=== PATIENT | male | born 1980 | race Caucasian/White ===

== ENCOUNTER 2024-03-01 07:10 | Observation (INO) ==
[~2024-03-01 07:10] MED LIST: NS 0.45% 1000 ml BAG 1,000 ML IV SCH; Naloxone 0.4 mg VIAL 0.4 mg/ml 1 ml VIAL IV PRN; Ondansetron 4 mg VIAL 2 MG/ML 2 ml VIAL IV PRN; fentaNYL 100 mcg/2 ml 50 MCG/ML VIAL IV PRN
[2024-03-01] MEDS ORDERED: ceFAZolin 2 GM PREMIX 2 GM/50 ML BAG ONE (07:51)
[2024-03-01] MEDS ORDERED: Tranexamic Acid 1 GM/100ML BAG 2,000 MG/200 ML BAG IV ONE (07:51)
[2024-03-01] MEDS: Scopolamine 1 mg/72hr PATCH TRANSDERM ONE (08:13)
[2024-03-01] MEDS: Buffered Lidocaine 1% SYRIN 1 ml INTRADERM ONE (08:13)
[2024-03-01] MEDS: Lactated Ringers 1000 ml BAG 1,000 ML IV SCH ×2 (08:13→14:30)
[2024-03-01] MEDS ORDERED: Propofol 10 MG/ML 20 ML BTL ONE (08:14)
[2024-03-01] MEDS ORDERED: Lidocaine 2% PF 5 ML VIAL ONE (08:14)
[2024-03-01] MEDS ORDERED: Phenylephrine IV 10 MG/ML 1 ml VIAL ONE ×2 (08:16)
[2024-03-01] MEDS ORDERED: ROPIVACAINE 5 MG/ML 30 ML BTL (0.5%) ONE (08:21)
[2024-03-01] MEDS ORDERED: Midazolam 2 mg/2 ml VIAL 1 mg/ml 2 ml VIAL (2 mg) ONE (08:22)
[2024-03-01 08:42] LABS: Rapid COVID-19 Molecular Undetected (Undetected)
[2024-03-01] MEDS ORDERED: fentaNYL 100 mcg/2 ml 50 MCG/ML VIAL ONE (09:49)
[2024-03-01] MEDS ORDERED: Midazolam 5 mg/5 ml VIAL 1 mg/ml 5 ml VIAL (5 mg) ONE (09:49)
[2024-03-01] MEDS ORDERED: Ondansetron 4 mg VIAL 2 MG/ML 2 ml VIAL ONE (10:39)
[2024-03-01] MEDS ORDERED: Dexamethasone IV 4 MG/ML VIAL 1 ml VIAL ONE (10:39)
[2024-03-01] MEDS ORDERED: Ondansetron 4 mg VIAL 2 MG/ML 2 ml VIAL IV PRN (12:12)
[2024-03-01] MEDS ORDERED: Magnesium Hydroxide LIQ 30 ML UDC PO PRN (12:12)
[2024-03-01] MEDS ORDERED: Lactulose 30 ml UDC PO PRN (12:12)
[2024-03-01] MEDS ORDERED: Calcium Carb (TUMS) 500 mg CHEW TAB PO PRN (12:12)
[2024-03-01] MEDS ORDERED: Ondansetron ODT 4 mg TAB 4 MG TAB PO PRN (12:12)
[2024-03-01 15:57] LABS: ABS Basophils 0.1 10^3/uL (0.0-0.1); ABS Lymphocytes 0.7 10^3/uL (1.0-4.8); ABS Monocytes 0.4 10^3/uL (0.0-1.1); ABS Neutrophils 7.5 10^3/uL (1.5-7.6); ABS Nucleated RBC 0.01 10^3/ul; Eosinophil % 0.4 %; Hematocrit 36.5 % (38-53); Hemoglobin 12.4 g/dL (13.2-16.3); Lymphocyte % 8.5 %; Mean Corpuscular Hemoglobin 34.3 pg (27-33); Mean Corpuscular Volume 100.9 fL (80-97); Mean Platelet Volume 9.3 fL (7.5-11.2); Nucleated Red Blood Cells % 0.1 %/100WBC (0.0-0.8); Platelet Count 126 10^3/uL (150-450); Red Blood Count 3.62 10^6/uL (4.06-5.63); Red Cell Distribution Width 13.8 % (12-17); White Blood Count 8.8 10^3/uL (3.6-10.2)
[2024-03-01 16:05] LABS: INR 1.4 (0.85-1.14)
[2024-03-01 16:23] LABS: Albumin 2.5 g/dL (3.5-5.7); Albumin/Globulin Ratio 0.8 (1-3); Calcium 8.4 mg/dL (8.6-10.3); Creatinine, Serum 0.68 mg/dL (0.67-1.17); Potassium 3.8 mmol/L (3.5-5.0); Total Protein 5.5 g/dL (6.4-8.9); eGFR CKD-EPI 116.8 (>60)
[2024-03-01] MEDS: Morphine 2 MG/ML SYRINGE IV PRN (17:11)
[2024-03-01 17:48] LABS: Hepatitis C Antibody Negative (Negative)
[2024-03-01] MEDS ORDERED: Lidocaine 2% JELLY 10 ML JELLY ONE (17:50)
[2024-03-01] MEDS: ceFAZolin 2 GM PREMIX 2 GM/50 ML BAG IV SCH (18:23)
[2024-03-01] MEDS: Acetaminophen IV 1 GM/100ML 1,000 MG/100 ML BAG IV ONE (18:42)
[2024-03-01] MEDS: Magnesium Hydroxide LIQ 30 ML UDC PO SCH (20:51)
[2024-03-02 06:16] LABS: Hematocrit 34.4 % (38-53); Hemoglobin 11.9 g/dL (13.2-16.3); Mean Platelet Volume 9.7 fL (7.5-11.2); Platelet Count 125 10^3/uL (150-450)
[2024-03-02 06:21] LABS: INR 1.3 (0.85-1.14)
[2024-03-02 06:48] LABS: Albumin 2.4 g/dL (3.5-5.7); Albumin/Globulin Ratio 0.8 (1-3); Creatinine, Serum 1.05 mg/dL (0.67-1.17); Potassium 4.2 mmol/L (3.5-5.0); Total Bilirubin 2.5 mg/dL (0.2-1.0); Total Protein 5.4 g/dL (6.4-8.9); eGFR CKD-EPI 89.2 (>60)
[2024-03-02] MEDS: Vitamin THERAPEUTIC TAB PO SCH (08:35)
[2024-03-02 15:29] LABS: Body Fluid Appearance Clear; Body Fluid Color Yellow; Body Fluid Source Peritonial Fluid
[2024-03-02 15:40] LABS: Body Fluid Total Nucleated 78 /mcL
[2024-03-02] MEDS: Albumin Human 25% 25 GM/100 ML BTL IV SCH (16:17)
[2024-03-02 16:23] LABS: Body Fluid Mono 28 %; Body Fluid Other Cells 201; Body Fluid Total Cells Counted 144
[2024-03-02] MEDS: Multivitamins/Minerals TAB PO SCH (22:48)
[2024-03-03 06:26] LABS: Hematocrit 30.9 % (38-53); Mean Platelet Volume 9.8 fL (7.5-11.2); Platelet Count 103 10^3/uL (150-450)
[2024-03-03 10:43] LABS: Creatinine, Serum 0.63 mg/dL (0.67-1.17); Potassium 4.2 mmol/L (3.5-5.0); eGFR CKD-EPI 119.5 (>60)
[2024-03-03] MEDS: Albumin Human 25% 25 GM/100 ML BTL IV ONE (11:47)
[2024-03-04 05:50] LABS: Hematocrit 32.1 % (38-53); Hemoglobin 11.2 g/dL (13.2-16.3); Mean Platelet Volume 9.2 fL (7.5-11.2); Platelet Count 106 10^3/uL (150-450)
[2024-03-04 06:21] LABS: Albumin 2.9 g/dL (3.5-5.7); Albumin/Globulin Ratio 1.4 (1-3); Calcium 8.5 mg/dL (8.6-10.3); Creatinine, Serum 0.56 mg/dL (0.67-1.17); Globulin 2.1 g/dL (2-4); Potassium 4.5 mmol/L (3.5-5.0); Total Bilirubin 3.1 mg/dL (0.2-1.0); eGFR CKD-EPI 123.9 (>60)
[2024-03-04 10:09] VITALS: BP 111/71
[2024-03-05 12:13] LABS: Lactate Dehydrogenase, BF 40 U/L
[2024-03-06 10:43] LABS: Albumin, BF 0.5 g/dL; Fluid Type, Albumin PERITONEAL FLUID; Fluid Type, Protein, Total PERITONEAL FLUID; Glucose, BF 128 mg/dL; Total Protein, BF 0.8 g/dL
== END 2024-03-04 11:57 | disposition home or self-care (01) ==
LOC: OR 07:10 → SSU 07:10
PROVIDERS: ADMIT Student in an Organized Health Care Education/Training Program; ATTEND Orthopaedic Surgery Adult Reconstructive Orthopaedic Surgery

== ENCOUNTER 2024-03-11 17:32 | Inpatient (IN) ==
[2024-03-11 18:39] LABS: ABS Lymphocytes 0.6 10^3/uL (1.0-4.8); ABS Monocytes 1.5 10^3/uL (0.0-1.1); ABS Neutrophils 10.8 10^3/uL (1.5-7.6); ABS Nucleated RBC 0.02 10^3/ul; Eosinophil % 0.4 %; Hematocrit 37.5 % (38-53); Hemoglobin 12.8 g/dL (13.2-16.3); Lymphocyte % 4.5 %; Mean Corpuscular Hemoglobin 33.9 pg (27-33); Mean Corpuscular Volume 99.7 fL (80-97); Mean Platelet Volume 8.9 fL (7.5-11.2); Nucleated Red Blood Cells % 0.1 %/100WBC (0.0-0.8); Platelet Count 112 10^3/uL (150-450); Red Blood Count 3.77 10^6/uL (4.06-5.63); Red Cell Distribution Width 13.9 % (12-17); White Blood Count 12.9 10^3/uL (3.6-10.2)
[2024-03-11 18:49] LABS: INR 1.43 (0.85-1.14)
[2024-03-11 19:20] LABS: Albumin 2.7 g/dL (3.5-5.7); C Reactive Protein 30.42 mg/L (<8.01); Calcium 8.8 mg/dL (8.6-10.3); Creatinine, Serum 1.03 mg/dL (0.67-1.17); Globulin 2.6 g/dL (2-4); Total Bilirubin 5.4 mg/dL (0.2-1.0); Total Protein 5.3 g/dL (6.4-8.9); eGFR CKD-EPI 91.3 (>60)
[2024-03-11] MEDS ORDERED: Albumin Human 25% 25 GM/100 ML BTL IV ONE ×3 (19:45→20:39)
[2024-03-11] MEDS: Albumin Human 25% 25 GM/100 ML IV SCH (20:36)
[2024-03-11 20:45] LABS: Body Fluid Total Nucleated 141 /mcL
[2024-03-11 20:58] LABS: Body Fluid Appearance Clear; Body Fluid Color Yellow; Body Fluid Source Peritonial Fluid
[2024-03-11 21:47] LABS: Body Fluid Mono 92 %; Body Fluid Other Cells 189; Body Fluid Total Cells Counted 200
[2024-03-11] MEDS: Albumin Human 25% 25 GM/100 ML BTL IV ONE (21:58)
[2024-03-12 05:46] LABS: Hematocrit 30.4 % (38-53); Hemoglobin 10.7 g/dL (13.2-16.3); Mean Corpuscular Hemoglobin 34.8 pg (27-33); Mean Corpuscular Hgb Conc 35.2 g/dL (31-36); Mean Corpuscular Volume 98.9 fL (80-97); Red Blood Count 3.08 10^6/uL (4.06-5.63); Red Cell Distribution Width 14.1 % (12-17); White Blood Count 10.1 10^3/uL (3.6-10.2)
[2024-03-12 05:48] LABS: INR 1.92 (0.85-1.14)
[2024-03-12 06:25] LABS: Albumin 2.9 g/dL (3.5-5.7); Albumin/Globulin Ratio 1.6 (1-3); Calcium 8.2 mg/dL (8.6-10.3); Creatinine, Serum 0.92 mg/dL (0.67-1.17); Globulin 1.8 g/dL (2-4); Potassium 4.8 mmol/L (3.5-5.0); Total Protein 4.7 g/dL (6.4-8.9); eGFR CKD-EPI 104.5 (>60)
[2024-03-12 06:38] LABS: ABS Lymphocytes 1.1 10^3/uL (1.0-4.8); ABS Monocytes 1.3 10^3/uL (0.0-1.1); ABS Neutrophils 7.6 10^3/uL (1.5-7.6); ABS Nucleated RBC 0.01 10^3/ul; Eosinophil % 0.4 %; Lymphocyte % 10.7 %; Mean Platelet Volume 9.1 fL (7.5-11.2); Nucleated Red Blood Cells % 0.1 %/100WBC (0.0-0.8); Platelet Count 80 10^3/uL (150-450); RBC Morphology Normal (Normal)
[2024-03-12 07:05] LABS: Hepatitis B Surface Antigen Nonreactive (Nonreactive)
[2024-03-12 07:10] LABS: Hepatitis B Core IgM Nonreactive (Nonreactive)
[2024-03-12 11:19] LABS: Hepatitis B Surface Ab Indeterminate (Immune)
[2024-03-12] MEDS: Albumin Human 25% 25 GM/100 ML BTL IV ONE (13:12)
[2024-03-12] MEDS: Enoxaparin 40 MG/0.4 ML SYR SUBCUT ONE (17:46)
[2024-03-12 18:17] LABS: Urine Appearance Clear; Urine Bacteria 1+ /HPF (Absent); Urine Bilirubin 1+ (Negative); Urine Blood Negative (Negative); Urine Color Dark-Yellow; Urine Glucose Negative (Negative); Urine Ketones Negative (Negative); Urine Nitrite Negative (Negative); Urine Protein Trace (Negative); Urine Red Blood Cell 1+(3-5/hpf) /HPF (0-Trace); Urine Specific Gravity 1.028 (1.002-1.030); Urine Squamous Epithelial Cell Present /HPF (Absent); Urine Urobilinogen 4+ (Negative); Urine White Blood Cell 1+(6-10/hpf) /HPF (0-Trace); Urine pH 5.5 (5.0-8.0)
[2024-03-12] MEDS: Senna TAB 8.6 mg TAB PO SCH (21:42)
[2024-03-13 05:59] LABS: ABS Lymphocytes 1.2 10^3/uL (1.0-4.8); ABS Monocytes 1.3 10^3/uL (0.0-1.1); ABS Neutrophils 8.2 10^3/uL (1.5-7.6); ABS Nucleated RBC 0.01 10^3/ul; Eosinophil % 0.3 %; Hematocrit 31.2 % (38-53); Hemoglobin 10.9 g/dL (13.2-16.3); Lymphocyte % 11.1 %; Mean Corpuscular Hemoglobin 34.5 pg (27-33); Mean Corpuscular Volume 98.6 fL (80-97); Mean Platelet Volume 8.9 fL (7.5-11.2); Nucleated Red Blood Cells % 0.1 %/100WBC (0.0-0.8); Platelet Count 77 10^3/uL (150-450); Red Blood Count 3.16 10^6/uL (4.06-5.63); Red Cell Distribution Width 13.9 % (12-17); White Blood Count 10.7 10^3/uL (3.6-10.2)
[2024-03-13 06:07] LABS: INR 1.91 (0.85-1.14)
[2024-03-13 06:26] LABS: Albumin 2.8 g/dL (3.5-5.7); Albumin/Globulin Ratio 1.6 (1-3); Calcium 8.2 mg/dL (8.6-10.3); Creatinine, Serum 0.73 mg/dL (0.67-1.17); Globulin 1.8 g/dL (2-4); Potassium 4.1 mmol/L (3.5-5.0); Total Bilirubin 4.3 mg/dL (0.2-1.0); Total Protein 4.6 g/dL (6.4-8.9); eGFR CKD-EPI 114.3 (>60)
[2024-03-13 08:03] LABS: Carcinoembryonic Antigen 1.8 ng/mL (0.1-5.0)
[2024-03-13] MEDS: Ondansetron 4 mg VIAL 2 MG/ML 2 ml VIAL IV PRN (09:53)
[2024-03-13] MEDS: Morphine 4 MG/ML VIAL (1 ml) IV PRN (09:54)
[2024-03-13] MEDS: Phytonadione Oral Solution 5 MG/25 ML UDC PO ONE (10:16)
[2024-03-13 13:50] LABS: Fluid Type, Amylase Peritoneal Fluid
[2024-03-13 15:10] LABS: Fluid Type, Protein, Total Peritoneal Fluid; Total Protein, BF 0.9 g/dL
[2024-03-13] MEDS: Enoxaparin 40 MG/0.4 ML SYR SUBCUT SCH (17:13)
[2024-03-14 06:46] LABS: Hematocrit 30.3 % (38-53); Hemoglobin 10.4 g/dL (13.2-16.3); Mean Corpuscular Hemoglobin 33.8 pg (27-33); Mean Corpuscular Hgb Conc 34.3 g/dL (31-36); Mean Corpuscular Volume 98.7 fL (80-97); Mean Platelet Volume 9.3 fL (7.5-11.2); Platelet Count 72 10^3/uL (150-450); Red Blood Count 3.07 10^6/uL (4.06-5.63); Red Cell Distribution Width 13.8 % (12-17); White Blood Count 11.1 10^3/uL (3.6-10.2)
[2024-03-14 06:47] LABS: INR 1.8 (0.85-1.14)
[2024-03-14 07:13] LABS: Albumin 2.7 g/dL (3.5-5.7); Albumin/Globulin Ratio 1.5 (1-3); Calcium 7.6 mg/dL (8.6-10.3); Creatinine, Serum 0.66 mg/dL (0.67-1.17); Globulin 1.8 g/dL (2-4); Potassium 3.8 mmol/L (3.5-5.0); Total Bilirubin 3.4 mg/dL (0.2-1.0); Total Protein 4.5 g/dL (6.4-8.9); eGFR CKD-EPI 117.9 (>60)
[2024-03-14 08:00] LABS: ABS Basophils 0.1 10^3/uL (0.0-0.1); ABS Lymphocytes 1.6 10^3/uL (1.0-4.8); ABS Monocytes 1.3 10^3/uL (0.0-1.1); ABS Neutrophils 8.1 10^3/uL (1.5-7.6); ABS Nucleated RBC 0.01 10^3/ul; Eosinophil % 0.4 %; Lymphocyte % 14.2 %; Nucleated Red Blood Cells % 0.1 %/100WBC (0.0-0.8); RBC Morphology Normal (Normal)
[2024-03-14] MEDS: Phytonadione Oral Solution 5 MG/25 ML UDC PO ONE (12:35)
[2024-03-15 06:06] LABS: Hematocrit 32.6 % (38-53); Hemoglobin 11.4 g/dL (13.2-16.3); Mean Corpuscular Hemoglobin 34.4 pg (27-33); Mean Corpuscular Hgb Conc 34.9 g/dL (31-36); Mean Corpuscular Volume 98.5 fL (80-97); Red Blood Count 3.31 10^6/uL (4.06-5.63); Red Cell Distribution Width 13.6 % (12-17); White Blood Count 9.8 10^3/uL (3.6-10.2)
[2024-03-15 06:11] LABS: INR 1.74 (0.85-1.14)
[2024-03-15 06:21] LABS: Albumin 2.6 g/dL (3.5-5.7); Albumin/Globulin Ratio 1.2 (1-3); Calcium 7.8 mg/dL (8.6-10.3); Creatinine, Serum 0.59 mg/dL (0.67-1.17); Globulin 2.1 g/dL (2-4); Potassium 3.9 mmol/L (3.5-5.0); Total Bilirubin 3.1 mg/dL (0.2-1.0); Total Protein 4.7 g/dL (6.4-8.9); eGFR CKD-EPI 121.9 (>60)
[2024-03-15 06:38] LABS: ABS Basophils 0.1 10^3/uL (0.0-0.1); ABS Eosinophils 0.1 10^3/uL (0.0-0.5); ABS Lymphocytes 1.7 10^3/uL (1.0-4.8); ABS Monocytes 1.2 10^3/uL (0.0-1.1); ABS Neutrophils 6.8 10^3/uL (1.5-7.6); ABS Nucleated RBC 0.03 10^3/ul; Eosinophil % 0.8 %; Mean Platelet Volume 9.6 fL (7.5-11.2); Nucleated Red Blood Cells % 0.3 %/100WBC (0.0-0.8); Platelet Count 67 10^3/uL (150-450)
[2024-03-15] MEDS: fentaNYL 100 mcg/2 ml 50 MCG/ML VIAL ONE (14:59)
[2024-03-15 15:03] LABS: Hematocrit 32.4 % (38-53); Mean Corpuscular Hemoglobin 33.5 pg (27-33); Mean Corpuscular Hgb Conc 34.1 g/dL (31-36); Mean Corpuscular Volume 98.3 fL (80-97); Platelet Count 65 10^3/uL (150-450); Red Blood Count 3.29 10^6/uL (4.06-5.63); Red Cell Distribution Width 13.5 % (12-17); White Blood Count 8.3 10^3/uL (3.6-10.2)
[2024-03-15 17:15] VITALS: BP 92/56
== END 2024-03-15 18:20 | disposition home or self-care (01) | DRG 720 ==
LOC: ED 17:32 → EDHOLD 17:32 → SUATTDRO 21:56 → MED 23:40
PROVIDERS: ADMIT Internal Medicine; ATTEND Hospitalist

== ENCOUNTER 2024-03-25 01:43 | Inpatient (IN) ==
[2024-03-25 02:48] LABS: ABS Basophils 0.1 10^3/uL (0.0-0.1); ABS Eosinophils 0.1 10^3/uL (0.0-0.5); ABS Lymphocytes 1.6 10^3/uL (1.0-4.8); ABS Monocytes 1.5 10^3/uL (0.0-1.1); Eosinophil % 0.6 %; Hematocrit 35.6 % (38-53); Lymphocyte % 10.6 %; Mean Corpuscular Hemoglobin 32.4 pg (27-33); Mean Corpuscular Hgb Conc 33.7 g/dL (31-36); Mean Corpuscular Volume 96.3 fL (80-97); Mean Platelet Volume 8.8 fL (7.5-11.2); Platelet Count 170 10^3/uL (150-450); White Blood Count 15.3 10^3/uL (3.6-10.2)
[2024-03-25 03:22] LABS: Albumin 2.7 g/dL (3.5-5.7); Albumin/Globulin Ratio 0.9 (1-3); Calcium 8.4 mg/dL (8.6-10.3); Creatinine, Serum 1.3 mg/dL (0.67-1.17); Potassium 4.7 mmol/L (3.5-5.0); Total Bilirubin 4.4 mg/dL (0.2-1.0); Total Protein 5.7 g/dL (6.4-8.9)
[2024-03-25] MEDS ORDERED: Ondansetron 4 mg VIAL 2 MG/ML 2 ml VIAL ONE (04:33)
[2024-03-25] MEDS: Ondansetron 4 mg VIAL 2 MG/ML 2 ml VIAL IV ONE (04:38)
[2024-03-25 06:23] LABS: INR 1.46 (0.85-1.14)
[2024-03-25] MEDS ORDERED: Phenylephrine 40 mcg/mL 10mL (400mcg) SYRINGE ONE (06:43)
[2024-03-25 09:15] LABS: Calcium 8.3 mg/dL (8.6-10.3); Creatinine, Serum 1.46 mg/dL (0.67-1.17); Potassium 4.8 mmol/L (3.5-5.0); eGFR CKD-EPI 60.1 (>60)
[2024-03-25 09:29] LABS: Osmolality Serum 264 mOsm/kg (275-295)
[2024-03-25 09:30] LABS: TSH Ultra Thyroid Stim Horm 10.91 mcIU/mL (0.34-5.60)
[2024-03-25] MEDS: NS 0.9% 500 ml BAG 500 ML IV ONE (10:16)
[2024-03-25] MEDS: Iohexol 350 (CONTRAST) 500 ML MDV IV ONE (11:39)
[2024-03-25] MEDS: Enoxaparin 40 MG/0.4 ML SYR SUBCUT SCH (14:08)
[2024-03-25] MEDS: cefTRIAXone 1 gm/50 mL D5W 1 GM/50 ML BAG IV SCH (14:08)
[2024-03-25 14:50] LABS: C Reactive Protein 27.28 mg/L (<8.01)
[2024-03-26 05:53] LABS: ABS Basophils 0.1 10^3/uL (0.0-0.1); ABS Eosinophils 0.2 10^3/uL (0.0-0.5); ABS Monocytes 1.3 10^3/uL (0.0-1.1); ABS Neutrophils 10.8 10^3/uL (1.5-7.6); ABS Nucleated RBC 0.01 10^3/ul; Eosinophil % 1.2 %; Hemoglobin 10.8 g/dL (13.2-16.3); Lymphocyte % 14.1 %; Mean Corpuscular Hemoglobin 33.8 pg (27-33); Mean Corpuscular Hgb Conc 34.7 g/dL (31-36); Mean Corpuscular Volume 97.3 fL (80-97); Mean Platelet Volume 8.4 fL (7.5-11.2); Nucleated Red Blood Cells % 0.1 %/100WBC (0.0-0.8); Platelet Count 136 10^3/uL (150-450); Red Blood Count 3.19 10^6/uL (4.06-5.63); Red Cell Distribution Width 13.8 % (12-17); White Blood Count 14.4 10^3/uL (3.6-10.2)
[2024-03-26 06:35] LABS: Anion Gap 8 mmol/L (2-16); Blood Urea Nitrogen 34 mg/dL (6-24); CO2 Carbon Dioxide 22 mmol/L (22-32); Calcium 7.9 mg/dL (8.6-10.3); Chloride 87 mmol/L (101-111); Creatinine, Serum 1.84 mg/dL (0.67-1.17); Glucose 57 mg/dL (70-100); Magnesium 1.9 mg/dL (1.9-2.7); Sodium 117 mmol/L (135-145); eGFR CKD-EPI 45.5 (>60)
[2024-03-26 07:48] LABS: ALT 23 U/L (7-52); Alkaline Phosphatase 115 U/L (35-149)
[2024-03-26] MEDS: Albumin Human 25% 25 GM/100 ML BTL IV ONE (08:32)
[2024-03-26] MEDS: Octreotide Acetate 50 MCG/ML ML SUBCUT SCH (08:42)
[2024-03-26 08:52] LABS: Potassium, Whole Blood 5.6 mmol/L (3.4-4.5)
[2024-03-26 11:29] LABS: INR 1.45 (0.85-1.14)
[2024-03-26 14:09] LABS: Calcium 7.8 mg/dL (8.6-10.3); Creatinine, Serum 1.92 mg/dL (0.67-1.17); Magnesium 1.9 mg/dL (1.9-2.7); eGFR CKD-EPI 43.2 (>60)
[2024-03-26 14:37] LABS: Body Fluid Appearance Clear; Body Fluid Color Yellow; Body Fluid Source Peritonial Fluid
[2024-03-26 14:47] LABS: Body Fluid Total Nucleated 39 /mcL
[2024-03-26 15:49] LABS: Body Fluid Mono 58 %; Body Fluid Other Cells 16; Body Fluid Total Cells Counted 100
[2024-03-26] MEDS ORDERED: Albumin Human 25% 75 GM/300 ML BTL IV ONE (16:01)
[2024-03-26] MEDS: Albumin Human 25% 75 GM/300 ML BTL IV ONE (16:25)
[2024-03-26] MEDS: Bumetanide IV 0.25 MG/ML 4 ml VIAL (1 mg) IV SLOW PU SCH (16:25)
[2024-03-26 17:52] LABS: Urine Osmo 356 mOsm/kg (150-1150)
[2024-03-26] MEDS ORDERED: Bumetanide IV 0.25 MG/ML 4 ml VIAL (1 mg) IV SLOW PU SCH (21:00)
[2024-03-26 23:56] LABS: Urine Appearance Clear; Urine Bilirubin Negative (Negative); Urine Blood Negative (Negative); Urine Color Yellow; Urine Glucose Negative (Negative); Urine Ketones Negative (Negative); Urine Nitrite Negative (Negative); Urine Protein Negative (Negative); Urine Specific Gravity 1.018 (1.002-1.030); Urine Urobilinogen Negative (Negative)
[2024-03-27 00:04] LABS: Creatinine, Serum 1.54 mg/dL (0.67-1.17); Potassium 4.6 mmol/L (3.5-5.0); eGFR CKD-EPI 56.3 (>60)
[2024-03-27 08:22] LABS: ABS Basophils 0.1 10^3/uL (0.0-0.1); ABS Eosinophils 0.1 10^3/uL (0.0-0.5); ABS Lymphocytes 1.7 10^3/uL (1.0-4.8); ABS Neutrophils 6.5 10^3/uL (1.5-7.6); Eosinophil % 0.9 %; Hemoglobin 9.1 g/dL (13.2-16.3); Lymphocyte % 18.3 %; Mean Corpuscular Hemoglobin 33.4 pg (27-33); Mean Corpuscular Hgb Conc 34.8 g/dL (31-36); Mean Corpuscular Volume 95.8 fL (80-97); Mean Platelet Volume 8.2 fL (7.5-11.2); Platelet Count 117 10^3/uL (150-450); Red Blood Count 2.72 10^6/uL (4.06-5.63); Red Cell Distribution Width 13.8 % (12-17); White Blood Count 9.4 10^3/uL (3.6-10.2)
[2024-03-27] MEDS: Albumin Human 25% 25 GM/100 ML BTL IV SCH (08:43)
[2024-03-27] MEDS ORDERED: Albumin Human 25% 100 GM/400 ML BTL IV SCH (09:00)
[2024-03-27 09:10] LABS: Calcium 7.8 mg/dL (8.6-10.3); Creatinine, Serum 1.36 mg/dL (0.67-1.17); Magnesium 1.8 mg/dL (1.9-2.7); Potassium 4.7 mmol/L (3.5-5.0); eGFR CKD-EPI 65.4 (>60)
[2024-03-28 06:16] LABS: Hematocrit 25.6 % (38-53); Hemoglobin 8.9 g/dL (13.2-16.3); Mean Corpuscular Hemoglobin 33.4 pg (27-33); Mean Corpuscular Hgb Conc 34.7 g/dL (31-36); Mean Corpuscular Volume 96.3 fL (80-97); Mean Platelet Volume 7.7 fL (7.5-11.2); Platelet Count 119 10^3/uL (150-450); Red Blood Count 2.66 10^6/uL (4.06-5.63); Red Cell Distribution Width 13.6 % (12-17); White Blood Count 10.4 10^3/uL (3.6-10.2)
[2024-03-28 06:33] LABS: INR 1.69 (0.85-1.14)
[2024-03-28 06:58] LABS: ALT 15 U/L (7-52); AST 28 U/L (13-39); Albumin 3.4 g/dL (3.5-5.7); Albumin/Globulin Ratio 1.9 (1-3); Alkaline Phosphatase 84 U/L (35-149); Anion Gap 10 mmol/L (2-16); Blood Urea Nitrogen 27 mg/dL (6-24); CO2 Carbon Dioxide 23 mmol/L (22-32); Calcium 8.3 mg/dL (8.6-10.3); Chloride 92 mmol/L (101-111); Creatinine, Serum 1.05 mg/dL (0.67-1.17); Globulin 1.8 g/dL (2-4); Glucose 99 mg/dL (70-100); Potassium 3.7 mmol/L (3.5-5.0); Sodium 125 mmol/L (135-145); Total Bilirubin 2.9 mg/dL (0.2-1.0); Total Protein 5.2 g/dL (6.4-8.9); eGFR CKD-EPI 89.2 (>60)
[2024-03-28 08:02] LABS: % Iron Saturation 34 % (15-55); .Transferrin < 75 mg/dL (203-362); Iron 36 ug/dL (50-212); Total Iron Binding Capacity 105 mcg/dL (250-450); Unsaturated Iron Binding 69 ug/dL
[2024-03-28 08:25] LABS: Ferritin 791.7 ng/mL (24-336)
[2024-03-28 08:28] LABS: Folate 3.95 ng/mL (5.90-24.80)
[2024-03-28 08:29] LABS: Vitamin B12 561 pg/mL (180-914)
[2024-03-28] MEDS: Albumin Human 25% 25 GM/100 ML IV SCH (10:34)
[2024-03-28] MEDS: Pantoprazole VIAL 40 MG VIAL IV SCH (21:50)
[2024-03-29 06:50] LABS: Hematocrit 26.9 % (38-53); Hemoglobin 9.3 g/dL (13.2-16.3); Mean Corpuscular Hemoglobin 33.1 pg (27-33); Mean Corpuscular Hgb Conc 34.5 g/dL (31-36); Mean Corpuscular Volume 95.9 fL (80-97); Mean Platelet Volume 7.9 fL (7.5-11.2); Platelet Count 121 10^3/uL (150-450); Red Cell Distribution Width 13.8 % (12-17); White Blood Count 12.5 10^3/uL (3.6-10.2)
[2024-03-29 06:56] LABS: INR 1.79 (0.85-1.14)
[2024-03-29 07:09] LABS: Albumin 3.5 g/dL (3.5-5.7); Albumin/Globulin Ratio 2.1 (1-3); Calcium 8.2 mg/dL (8.6-10.3); Creatinine, Serum 0.83 mg/dL (0.67-1.17); Globulin 1.7 g/dL (2-4); Potassium 3.2 mmol/L (3.5-5.0); Total Bilirubin 3.1 mg/dL (0.2-1.0); Total Protein 5.2 g/dL (6.4-8.9)
[2024-03-29] MEDS: KCL 20 MEQ/100 ML IVPREMIX 20 MEQ/100 ML BAG IV SCH (09:36)
[2024-03-29 11:06] LABS: BF PH 8.6
[2024-03-29 11:57] LABS: Albumin, BF 0.5 g/dL; Fluid Type, Albumin PERITONEAL FLUID; Fluid Type, Amylase PERITONEAL FLUID; Fluid Type, Protein, Total PERITONEAL FLUID; Fluid Type: PERITONEAL FLUID; Glucose, BF 90 mg/dL; Total Protein, BF 0.9 g/dL
[2024-03-29 14:53] VITALS: BP 98/63
[2024-03-29 15:33] LABS: Body Fluid Bilirubin 0.5 mg/dL; Fluid Type PERITONEAL FLUID
== END 2024-03-29 16:45 | disposition left against medical advice (07) | DRG 952 ==
LOC: ED 01:43 → EDHOLD 01:43 → SUATTDRO 09:40 → SSU 11:14 → MEDTELE 03-26 18:08
PROVIDERS: ADMIT Student in an Organized Health Care Education/Training Program; ATTEND Internal Medicine
PROC: O.GIEGD (2024-03-29 12:05)

== ENCOUNTER 2024-04-03 01:43 | Inpatient (IN) ==
[2024-04-03 02:38] LABS: ABS Basophils 0.1 10^3/uL (0.0-0.1); ABS Eosinophils 0.1 10^3/uL (0.0-0.5); ABS Lymphocytes 0.6 10^3/uL (1.0-4.8); ABS Monocytes 0.6 10^3/uL (0.0-1.1); ABS Neutrophils 9.9 10^3/uL (1.5-7.6); Hematocrit 26.6 % (38-53); Hemoglobin 9.3 g/dL (13.2-16.3); Lymphocyte % 5.1 %; Mean Corpuscular Hemoglobin 33.7 pg (27-33); Mean Corpuscular Hgb Conc 34.9 g/dL (31-36); Mean Corpuscular Volume 96.5 fL (80-97); Mean Platelet Volume 9.1 fL (7.5-11.2); Platelet Count 92 10^3/uL (150-450); Red Blood Count 2.76 10^6/uL (4.06-5.63); Red Cell Distribution Width 14.8 % (12-17); White Blood Count 11.2 10^3/uL (3.6-10.2)
[2024-04-03] MEDS: Propofol 10 MG/ML 20 ML BTL IV PUSH ONE (02:51)
[2024-04-03 03:17] LABS: ALT 12 U/L (7-52); AST 21 U/L (13-39); Albumin 2.8 g/dL (3.5-5.7); Albumin/Globulin Ratio 1.3 (1-3); Alcohol, S < 13 mg/dL (<13); Alkaline Phosphatase 106 U/L (35-149); Anion Gap 6 mmol/L (2-16); Blood Urea Nitrogen 19 mg/dL (6-24); CO2 Carbon Dioxide 25 mmol/L (22-32); Calcium 7.5 mg/dL (8.6-10.3); Chloride 96 mmol/L (101-111); Creatinine, Serum 0.83 mg/dL (0.67-1.17); Globulin 2.1 g/dL (2-4); Glucose 97 mg/dL (70-100); Potassium 3.5 mmol/L (3.5-5.0); Sodium 127 mmol/L (135-145); Total Bilirubin 3.8 mg/dL (0.2-1.0); Total Protein 4.9 g/dL (6.4-8.9)
[2024-04-03] MEDS ORDERED: Ondansetron 4 mg VIAL 2 MG/ML 2 ml VIAL ONE (06:27)
[2024-04-03] MEDS: Ondansetron 4 mg VIAL 2 MG/ML 2 ml VIAL IV ONE (06:29)
[2024-04-03] MEDS: Iohexol 350 (CONTRAST) 500 ML MDV IV ONE (07:04)
[2024-04-03] MEDS: Heparin 5000 UNITS/ML 1 mL VIAL IV SCH (08:33)
[2024-04-03] MEDS: Heparin DRIP 25,000 UNITS BAG 25,000 UNITS/250 ML BAG IV SCH (08:38)
[2024-04-03 08:48] LABS: ABS Lymphocytes 0.4 10^3/uL (1.0-4.8); ABS Monocytes 0.5 10^3/uL (0.0-1.1); ABS Neutrophils 8.9 10^3/uL (1.5-7.6); ABS Nucleated RBC 0.01 10^3/ul; Eosinophil % 0.2 %; Hematocrit 30.1 % (38-53); Hemoglobin 10.5 g/dL (13.2-16.3); Lymphocyte % 4.4 %; Mean Corpuscular Hemoglobin 33.5 pg (27-33); Mean Corpuscular Hgb Conc 34.9 g/dL (31-36); Mean Platelet Volume 8.5 fL (7.5-11.2); Nucleated Red Blood Cells % 0.1 %/100WBC (0.0-0.8); Platelet Count 102 10^3/uL (150-450); Red Blood Count 3.14 10^6/uL (4.06-5.63); Red Cell Distribution Width 14.5 % (12-17); White Blood Count 9.9 10^3/uL (3.6-10.2)
[2024-04-03 09:19] LABS: Creatinine, Serum 0.93 mg/dL (0.67-1.17); eGFR CKD-EPI 103.2 (>60)
[2024-04-03 13:24] LABS: Osmolality Serum 272 mOsm/kg (275-295)
[2024-04-03] MEDS: Morphine 2 MG/ML SYRINGE IV PRN (13:53)
[2024-04-03] MEDS: Sulfur Hexaflouride MICROSPHR 25 MG VIAL IV PRN (13:59)
[2024-04-03 14:38] LABS: T4, Total 5.19 mcg/dL (6.09-12.23)
[2024-04-03 18:03] LABS: INR 2.13 (0.85-1.14)
[2024-04-04 04:12] LABS: Hematocrit 24.4 % (38-53); Hemoglobin 8.5 g/dL (13.2-16.3); Mean Corpuscular Hemoglobin 33.3 pg (27-33); Mean Corpuscular Hgb Conc 34.7 g/dL (31-36); Mean Corpuscular Volume 95.9 fL (80-97); Red Blood Count 2.55 10^6/uL (4.06-5.63); Red Cell Distribution Width 14.5 % (12-17); White Blood Count 10.9 10^3/uL (3.6-10.2)
[2024-04-04 04:16] LABS: Urine Appearance Clear; Urine Bilirubin Negative (Negative); Urine Blood 1+ (Negative); Urine Color Yellow; Urine Glucose Negative (Negative); Urine Ketones Negative (Negative); Urine Nitrite Negative (Negative); Urine Protein Trace (Negative); Urine Specific Gravity 1.039 (1.002-1.030); Urine Urobilinogen 1+ (Negative); Urine pH 5.5 (5.0-8.0)
[2024-04-04 04:22] LABS: Urine Bacteria Absent /HPF (Absent); Urine Red Blood Cell 1+(3-5/hpf) /HPF (0-Trace); Urine Squamous Epithelial Cell Present /HPF (Absent); Urine White Blood Cell Absent /HPF (0-Trace)
[2024-04-04 04:38] LABS: Calcium 7.9 mg/dL (8.6-10.3); Creatinine, Serum 1.17 mg/dL (0.67-1.17); Magnesium 1.5 mg/dL (1.9-2.7); Potassium 4.1 mmol/L (3.5-5.0); eGFR CKD-EPI 78.3 (>60)
[2024-04-04 04:57] LABS: ABS Basophils 0.1 10^3/uL (0.0-0.1); ABS Eosinophils 0.1 10^3/uL (0.0-0.5); ABS Lymphocytes 0.9 10^3/uL (1.0-4.8); ABS Monocytes 1.1 10^3/uL (0.0-1.1); ABS Neutrophils 8.7 10^3/uL (1.5-7.6); Lymphocyte % 8.6 %; Mean Platelet Volume 8.5 fL (7.5-11.2); Platelet Count 92 10^3/uL (150-450)
[2024-04-04 05:57] LABS: Urine Osmo 363 mOsm/kg (150-1150)
[2024-04-04] MEDS: Magnesium Sulfate 2 gm BAG 2 GM/50 ML BAG IVPB ONE (06:12)
[2024-04-04] MEDS: Magnesium Sulfate IV 1GM/100ML 1 GM/100 ML BAG IV ONE (08:05)
[2024-04-04 11:09] LABS: TSH Ultra Thyroid Stim Horm 5.89 mcIU/mL (0.34-5.60)
[2024-04-04 12:18] LABS: Hematocrit 24.3 % (38-53); Hemoglobin 8.4 g/dL (13.2-16.3)
[2024-04-04] MEDS: Norepinephrine 32MCG/ML D5WBAG 8,000 MCG/250 ML BAG IV SCH (15:23)
[2024-04-04] MEDS: fentaNYL 100 mcg/2 ml 50 MCG/ML VIAL IV SLOW PU ONE (15:30)
[2024-04-04] MEDS: Propofol 10 MG/ML 20 ML BTL IV PUSH ONE (15:30)
[2024-04-04] MEDS ORDERED: Phenylephrine 40 mcg/mL 10mL (400mcg) SYRINGE IV PRN (16:21)
[2024-04-04] MEDS: Propofol 10 MG/ML 20 ML BTL ONE (16:28)
[2024-04-04] MEDS: Phenylephrine 40 mcg/mL 10mL (400mcg) SYRINGE ONE (16:29)
[2024-04-04] MEDS: fentaNYL 100 mcg/2 ml 50 MCG/ML VIAL ONE (16:29)
[2024-04-04] MEDS ORDERED: fentaNYL 100 mcg/2 ml 50 MCG/ML VIAL ONE (19:25)
[2024-04-04] MEDS ORDERED: KETAMINE HCL 10 MG/ML 20 ml VIAL (200 MG) ONE (19:34)
[2024-04-04] MEDS: Morphine 2 MG/ML SYRINGE IV PRN (23:07)
[2024-04-04] MEDS: Ondansetron 4 mg VIAL 2 MG/ML 2 ml VIAL IV PRN (23:18)
[2024-04-05] MEDS: Lidocaine PATCH 5% PATCH TRANSDERM ONE (01:09)
[2024-04-05 06:09] LABS: Calcium 7.5 mg/dL (8.6-10.3); Creatinine, Serum 0.97 mg/dL (0.67-1.17); Magnesium 2.2 mg/dL (1.9-2.7); Phosphorus 3.1 mg/dL (2.5-5.0); Potassium 4.3 mmol/L (3.5-5.0); eGFR CKD-EPI 98.1 (>60)
[2024-04-05 06:11] LABS: ABS Eosinophils 0.1 10^3/uL (0.0-0.5); ABS Lymphocytes 1.2 10^3/uL (1.0-4.8); ABS Monocytes 1.1 10^3/uL (0.0-1.1); ABS Neutrophils 15.5 10^3/uL (1.5-7.6); Eosinophil % 0.6 %; Hematocrit 21.6 % (38-53); Hemoglobin 7.3 g/dL (13.2-16.3); Lymphocyte % 6.7 %; Mean Corpuscular Hemoglobin 32.7 pg (27-33); Mean Corpuscular Volume 96.3 fL (80-97); Mean Platelet Volume 9.2 fL (7.5-11.2); Platelet Count 88 10^3/uL (150-450); Red Blood Count 2.24 10^6/uL (4.06-5.63); Red Cell Distribution Width 14.4 % (12-17)
[2024-04-05 09:48] LABS: Body Fluid Appearance Clear; Body Fluid Color Yellow; Body Fluid Source Peritonial Fluid
[2024-04-05 09:58] LABS: Body Fluid Total Nucleated 19 /mcL
[2024-04-05 11:14] LABS: Body Fluid Mono 58 %; Body Fluid Other Cells 4; Body Fluid Total Cells Counted 200; Body Fluid Variant Lymph 1 %
[2024-04-05] MEDS: Lidocaine PATCH 5% PATCH TRANSDERM SCH (16:42)
[2024-04-05] MEDS: Albumin Human 5% 12.5 GM/250 ML BTL IV ONE (18:23)
[2024-04-05] MEDS: Albumin Human 25% 25 GM/100 ML BTL IV ONE (21:57)
[2024-04-05 22:27] LABS: Hematocrit 18.8 % (38-53); Hemoglobin 6.3 g/dL (13.2-16.3); Mean Corpuscular Hemoglobin 32.3 pg (27-33); Mean Corpuscular Hgb Conc 33.8 g/dL (31-36); Mean Corpuscular Volume 95.8 fL (80-97); Mean Platelet Volume 9.4 fL (7.5-11.2); Platelet Count 73 10^3/uL (150-450); Red Blood Count 1.96 10^6/uL (4.06-5.63); Red Cell Distribution Width 14.5 % (12-17); White Blood Count 16.6 10^3/uL (3.6-10.2)
[2024-04-06] MEDS: Norepinephrine 32MCG/ML D5WBAG 8,000 MCG/250 ML BAG IV SCH ×2 (00:30→08:09)
[2024-04-06] MEDS: Norepinephrine 32MCG/ML D5WBAG 8,000 MCG/250 ML BAG IV ONE (04:47)
[2024-04-06 05:39] LABS: ABS Basophils 0.1 10^3/uL (0.0-0.1); ABS Eosinophils 0.4 10^3/uL (0.0-0.5); ABS Lymphocytes 1.4 10^3/uL (1.0-4.8); ABS Monocytes 1.1 10^3/uL (0.0-1.1); ABS Neutrophils 16.4 10^3/uL (1.5-7.6); ABS Nucleated RBC 0.02 10^3/ul; Eosinophil % 2.2 %; Hematocrit 21.2 % (38-53); Hemoglobin 7.3 g/dL (13.2-16.3); Lymphocyte % 7.2 %; Mean Corpuscular Hgb Conc 34.7 g/dL (31-36); Mean Corpuscular Volume 92.2 fL (80-97); Mean Platelet Volume 9.1 fL (7.5-11.2); Nucleated Red Blood Cells % 0.1 %/100WBC (0.0-0.8); Platelet Count 79 10^3/uL (150-450); Red Cell Distribution Width 16.1 % (12-17); White Blood Count 19.3 10^3/uL (3.6-10.2)
[2024-04-06 06:03] LABS: Calcium 7.9 mg/dL (8.6-10.3); Creatinine, Serum 0.83 mg/dL (0.67-1.17); Magnesium 2.1 mg/dL (1.9-2.7); Phosphorus 1.8 mg/dL (2.5-5.0); Potassium 4.4 mmol/L (3.5-5.0)
[2024-04-06] MEDS: NS 0.9% IV ONE (08:06)
[2024-04-06] MEDS: SODIUM PHOSPHATE IV ONE (08:06)
[2024-04-06] MEDS ORDERED: Lidocaine PATCH 5% PATCH TRANSDERM SCH (09:00)
[2024-04-06 09:49] LABS: Hematocrit 22.4 % (38-53); Hemoglobin 7.7 g/dL (13.2-16.3)
[2024-04-06 15:01] LABS: Body Fluid Bilirubin 0.9 mg/dL; Fluid Type PERITONEAL FLUID
[2024-04-06 15:05] LABS: Fluid Type, Albumin PERITONEAL FLUID; Fluid Type, Protein, Total PERITONEAL FLUID; Fluid Type: PERITONEAL FLUID; Glucose, BF 111 mg/dL; Total Protein, BF 1.5 g/dL
[2024-04-06 15:29] LABS: Fluid Type, Amylase PERITONEAL FLUID
[2024-04-06 15:46] LABS: BF PH 7.6
[2024-04-06 18:28] LABS: Hematocrit 21.7 % (38-53); Hemoglobin 7.7 g/dL (13.2-16.3)
[2024-04-07 04:55] LABS: ABS Basophils 0.1 10^3/uL (0.0-0.1); ABS Eosinophils 0.3 10^3/uL (0.0-0.5); ABS Lymphocytes 1.4 10^3/uL (1.0-4.8); ABS Monocytes 1.1 10^3/uL (0.0-1.1); ABS Neutrophils 15.4 10^3/uL (1.5-7.6); ABS Nucleated RBC 0.01 10^3/ul; Eosinophil % 1.4 %; Hematocrit 21.2 % (38-53); Hemoglobin 7.5 g/dL (13.2-16.3); Lymphocyte % 7.9 %; Mean Corpuscular Hemoglobin 32.8 pg (27-33); Mean Corpuscular Hgb Conc 35.3 g/dL (31-36); Mean Corpuscular Volume 92.7 fL (80-97); Mean Platelet Volume 8.9 fL (7.5-11.2); Platelet Count 78 10^3/uL (150-450); Red Blood Count 2.29 10^6/uL (4.06-5.63); Red Cell Distribution Width 16.3 % (12-17); White Blood Count 18.3 10^3/uL (3.6-10.2)
[2024-04-07 05:40] LABS: Albumin 2.6 g/dL (3.5-5.7); Albumin/Globulin Ratio 1.2 (1-3); Calcium 7.6 mg/dL (8.6-10.3); Creatinine, Serum 0.64 mg/dL (0.67-1.17); Globulin 2.1 g/dL (2-4); Potassium 4.6 mmol/L (3.5-5.0); Total Bilirubin 4.1 mg/dL (0.2-1.0); Total Protein 4.7 g/dL (6.4-8.9)
[2024-04-07 07:31] LABS: Phosphorus 1.6 mg/dL (2.5-5.0)
[2024-04-07] MEDS: Albumin Human 25% 25 GM/100 ML BTL IV ONE (08:29)
[2024-04-07] MEDS: Sodium Phosphate IV 30 MMOL in NS 0.9% 250 ml 250 ML IV ONE (09:14)
[2024-04-08 05:20] LABS: ABS Basophils 0.1 10^3/uL (0.0-0.1); ABS Eosinophils 0.3 10^3/uL (0.0-0.5); ABS Lymphocytes 1.5 10^3/uL (1.0-4.8); ABS Monocytes 1.1 10^3/uL (0.0-1.1); ABS Neutrophils 11.3 10^3/uL (1.5-7.6); Eosinophil % 2.1 %; Hemoglobin 7.3 g/dL (13.2-16.3); Lymphocyte % 10.3 %; Mean Corpuscular Hemoglobin 32.3 pg (27-33); Mean Corpuscular Hgb Conc 34.7 g/dL (31-36); Mean Corpuscular Volume 93.1 fL (80-97); Platelet Count 78 10^3/uL (150-450); Red Blood Count 2.26 10^6/uL (4.06-5.63); White Blood Count 14.3 10^3/uL (3.6-10.2)
[2024-04-08 05:46] LABS: Albumin 2.7 g/dL (3.5-5.7); Albumin/Globulin Ratio 1.4 (1-3); Calcium 7.8 mg/dL (8.6-10.3); Creatinine, Serum 0.63 mg/dL (0.67-1.17); Magnesium 1.8 mg/dL (1.9-2.7); Phosphorus 1.7 mg/dL (2.5-5.0); Potassium 4.7 mmol/L (3.5-5.0); Total Bilirubin 3.8 mg/dL (0.2-1.0); Total Protein 4.7 g/dL (6.4-8.9); eGFR CKD-EPI 119.5 (>60)
[2024-04-08] MEDS: Magnesium Sulfate 2 gm BAG 2 GM/50 ML BAG IVPB ONE (10:22)
[2024-04-08] MEDS: Sodium Phosphate IV 30 MMOL in NS 0.9% 250 ml 250 ML IV ONE (10:28)
[2024-04-08] MEDS: Lactulose 30 ml UDC PO SCH (13:46)
[2024-04-08 14:30] LABS: Calcium 7.7 mg/dL (8.6-10.3); Creatinine, Serum 0.51 mg/dL (0.67-1.17); Magnesium 2.2 mg/dL (1.9-2.7); Phosphorus 3.4 mg/dL (2.5-5.0); eGFR CKD-EPI 127.4 (>60)
[2024-04-09] MEDS: Norepinephrine 32MCG/ML D5WBAG 8,000 MCG/250 ML BAG IV SCH (03:26)
[2024-04-09 04:53] LABS: ABS Basophils 0.1 10^3/uL (0.0-0.1); ABS Eosinophils 0.4 10^3/uL (0.0-0.5); ABS Lymphocytes 1.7 10^3/uL (1.0-4.8); ABS Monocytes 1.5 10^3/uL (0.0-1.1); ABS Neutrophils 11.1 10^3/uL (1.5-7.6); ABS Nucleated RBC 0.01 10^3/ul; Eosinophil % 2.5 %; Hematocrit 21.6 % (38-53); Hemoglobin 7.5 g/dL (13.2-16.3); Lymphocyte % 11.3 %; Mean Corpuscular Hemoglobin 32.5 pg (27-33); Mean Corpuscular Hgb Conc 34.5 g/dL (31-36); Mean Corpuscular Volume 94.1 fL (80-97); Mean Platelet Volume 8.5 fL (7.5-11.2); Platelet Count 97 10^3/uL (150-450); White Blood Count 14.7 10^3/uL (3.6-10.2)
[2024-04-09 05:33] LABS: Albumin 2.6 g/dL (3.5-5.7); Albumin/Globulin Ratio 1.2 (1-3); Calcium 7.9 mg/dL (8.6-10.3); Creatinine, Serum 0.58 mg/dL (0.67-1.17); Globulin 2.2 g/dL (2-4); Phosphorus 2.6 mg/dL (2.5-5.0); Potassium 4.7 mmol/L (3.5-5.0); Total Bilirubin 4.7 mg/dL (0.2-1.0); Total Protein 4.8 g/dL (6.4-8.9); eGFR CKD-EPI 122.6 (>60)
[2024-04-09 08:38] LABS: INR 4.27 (0.85-1.14)
[2024-04-09] MEDS: Phytonadione Oral Solution 5 MG/25 ML UDC PO SCH (13:55)
[2024-04-10 04:37] LABS: Hematocrit 23.9 % (38-53); Hemoglobin 8.2 g/dL (13.2-16.3); Mean Corpuscular Hemoglobin 32.4 pg (27-33); Mean Corpuscular Hgb Conc 34.3 g/dL (31-36); Mean Corpuscular Volume 94.6 fL (80-97); Mean Platelet Volume 8.9 fL (7.5-11.2); Platelet Count 129 10^3/uL (150-450); Red Blood Count 2.52 10^6/uL (4.06-5.63); White Blood Count 12.1 10^3/uL (3.6-10.2)
[2024-04-10 04:44] LABS: INR 3.96 (0.85-1.14)
[2024-04-10 05:15] LABS: ALT 15 U/L (7-52); Albumin 2.7 g/dL (3.5-5.7); Albumin/Globulin Ratio 1.1 (1-3); Alkaline Phosphatase 114 U/L (35-149); Anion Gap 7 mmol/L (2-16); Blood Urea Nitrogen 12 mg/dL (6-24); CO2 Carbon Dioxide 27 mmol/L (22-32); Calcium 7.8 mg/dL (8.6-10.3); Chloride 96 mmol/L (101-111); Creatinine, Serum 0.53 mg/dL (0.67-1.17); Globulin 2.4 g/dL (2-4); Glucose 112 mg/dL (70-100); Magnesium 1.8 mg/dL (1.9-2.7); Sodium 130 mmol/L (135-145); Total Bilirubin 4.9 mg/dL (0.2-1.0); Total Protein 5.1 g/dL (6.4-8.9); eGFR CKD-EPI 125.9 (>60)
[2024-04-10 05:27] LABS: ABS Basophils 0.1 10^3/uL (0.0-0.1); ABS Eosinophils 0.6 10^3/uL (0.0-0.5); ABS Lymphocytes 1.9 10^3/uL (1.0-4.8); ABS Monocytes 1.6 10^3/uL (0.0-1.1); ABS Neutrophils 7.9 10^3/uL (1.5-7.6); Eosinophil % 5.1 %; Lymphocyte % 15.6 %
[2024-04-10 06:11] LABS: Phosphorus 2.1 mg/dL (2.5-5.0); Potassium Redraw 4.4 mmol/L (3.5-5.0)
[2024-04-10] MEDS: Sodium Phosphate IV 10 MMOL in NS 0.9% 250 ml 250 ML IV ONE (09:44)
[2024-04-10] MEDS: Magnesium Sulfate 2 gm BAG 2 GM/50 ML BAG IVPB ONE (09:44)
[2024-04-10 14:30] LABS: Hematocrit 21.5 % (38-53); Hemoglobin 7.3 g/dL (13.2-16.3)
[2024-04-10 15:01] LABS: Calcium 7.6 mg/dL (8.6-10.3); Creatinine, Serum 0.48 mg/dL (0.67-1.17); Phosphorus 2.4 mg/dL (2.5-5.0); eGFR CKD-EPI 129.8 (>60)
[2024-04-10] MEDS: Sodium Phosphate IV 30 MMOL in NS 0.9% 250 ml 250 ML IV ONE (17:47)
[2024-04-10] MEDS: PEG 3000 GI LAVAGE 1 GALLON PO ONE (17:47)
[2024-04-10 22:23] LABS: Hematocrit 22.4 % (38-53); Hemoglobin 7.6 g/dL (13.2-16.3)
[2024-04-11 04:48] LABS: ABS Basophils 0.1 10^3/uL (0.0-0.1); ABS Eosinophils 0.3 10^3/uL (0.0-0.5); ABS Lymphocytes 1.7 10^3/uL (1.0-4.8); ABS Monocytes 1.4 10^3/uL (0.0-1.1); ABS Neutrophils 6.3 10^3/uL (1.5-7.6); Hematocrit 22.3 % (38-53); Hemoglobin 7.8 g/dL (13.2-16.3); Mean Corpuscular Volume 94.1 fL (80-97); Mean Platelet Volume 8.3 fL (7.5-11.2); Platelet Count 110 10^3/uL (150-450); Red Blood Count 2.37 10^6/uL (4.06-5.63); Red Cell Distribution Width 16.2 % (12-17); White Blood Count 9.8 10^3/uL (3.6-10.2)
[2024-04-11 04:57] LABS: INR 2.33 (0.85-1.14)
[2024-04-11 05:20] LABS: Albumin 2.6 g/dL (3.5-5.7); Calcium 7.5 mg/dL (8.6-10.3); Creatinine, Serum 0.52 mg/dL (0.67-1.17); Globulin 2.6 g/dL (2-4); Magnesium 2.1 mg/dL (1.9-2.7); Phosphorus 3.5 mg/dL (2.5-5.0); Potassium 3.2 mmol/L (3.5-5.0); Total Bilirubin 3.4 mg/dL (0.2-1.0); Total Protein 5.2 g/dL (6.4-8.9); eGFR CKD-EPI 126.7 (>60)
[2024-04-11] MEDS: KCL 20 MEQ/100 ML IVPREMIX 20 MEQ/100 ML BAG IV SCH ×2 (07:52→17:27)
[2024-04-11] MEDS: KCL 20 MEQ/100 ML IVPREMIX 20 MEQ/100 ML BAG IV ONE (09:24)
[2024-04-11] MEDS: Albumin Human 25% 25 GM/100 ML BTL IV ONE (09:30)
[2024-04-11] MEDS: Potassium Chlor 20 meq TAB.ER PO SCH ×2 (09:30→17:37)
[2024-04-11] MEDS: Phytonadione IV (Adult) 10 MG in NS 0.9% 50 ML 50 ML IV ONE (10:45)
[2024-04-11] MEDS ORDERED: Heparin 5000 UNITS/ML 1 mL VIAL IV SCH (12:00)
[2024-04-11] MEDS: Heparin DRIP 25,000 UNITS BAG 25,000 UNITS/250 ML BAG IV SCH (13:45)
[2024-04-11 14:48] LABS: Hematocrit 20.5 % (38-53); Hemoglobin 7.2 g/dL (13.2-16.3); Mean Corpuscular Hemoglobin 33.4 pg (27-33); Mean Corpuscular Volume 95.4 fL (80-97); Red Blood Count 2.15 10^6/uL (4.06-5.63); Red Cell Distribution Width 16.5 % (12-17); White Blood Count 9.6 10^3/uL (3.6-10.2)
[2024-04-11 15:05] LABS: Calcium 7.6 mg/dL (8.6-10.3); Creatinine, Serum 0.47 mg/dL (0.67-1.17); Phosphorus 2.7 mg/dL (2.5-5.0); Potassium 3.3 mmol/L (3.5-5.0); eGFR CKD-EPI 130.6 (>60)
[2024-04-11 15:30] LABS: Mean Platelet Volume 8.5 fL (7.5-11.2); Platelet Count 97 10^3/uL (150-450)
[2024-04-11] MEDS: Potassium Phosphate IV 15 MMOL in NS 0.9% 250 ml 250 ML IVPB ONE (17:48)
[2024-04-11] MEDS: cefTRIAXone 1 gm/50 mL D5W 1 GM/50 ML BAG IV SCH (20:12)
[2024-04-12 00:41] LABS: Calcium 7.4 mg/dL (8.6-10.3); Creatinine, Serum 0.47 mg/dL (0.67-1.17); Potassium 4.2 mmol/L (3.5-5.0); eGFR CKD-EPI 130.6 (>60)
[2024-04-12 04:45] LABS: INR 2.1 (0.85-1.14)
[2024-04-12 04:45] LABS: ABS Basophils 0.1 10^3/uL (0.0-0.1); ABS Eosinophils 0.3 10^3/uL (0.0-0.5); ABS Lymphocytes 1.3 10^3/uL (1.0-4.8); ABS Monocytes 1.2 10^3/uL (0.0-1.1); ABS Neutrophils 5.6 10^3/uL (1.5-7.6); ABS Nucleated RBC 0.01 10^3/ul; Eosinophil % 3.1 %; Hematocrit 20.8 % (38-53); Hemoglobin 7.1 g/dL (13.2-16.3); Lymphocyte % 15.1 %; Mean Corpuscular Hemoglobin 32.5 pg (27-33); Mean Corpuscular Hgb Conc 34.5 g/dL (31-36); Mean Corpuscular Volume 94.5 fL (80-97); Mean Platelet Volume 8.8 fL (7.5-11.2); Nucleated Red Blood Cells % 0.1 %/100WBC (0.0-0.8); Platelet Count 102 10^3/uL (150-450); Red Cell Distribution Width 17.2 % (12-17); White Blood Count 8.4 10^3/uL (3.6-10.2)
[2024-04-12 05:22] LABS: Albumin 2.7 g/dL (3.5-5.7); Albumin/Globulin Ratio 1.2 (1-3); Calcium 7.4 mg/dL (8.6-10.3); Creatinine, Serum 0.4 mg/dL (0.67-1.17); Globulin 2.3 g/dL (2-4); Phosphorus 2.3 mg/dL (2.5-5.0); Total Bilirubin 3.8 mg/dL (0.2-1.0); eGFR CKD-EPI 137.1 (>60)
[2024-04-12 06:06] LABS: Magnesium 1.8 mg/dL (1.9-2.7)
[2024-04-12] MEDS ORDERED: Lorazepam PYXIS KEY PRN (06:09)
[2024-04-12] MEDS: Sodium Phosphate IV 15 MMOL in NS 0.9% 250 ml 250 ML IV ONE (06:28)
[2024-04-12] MEDS: LORazepam 2 mg VIAL 1 ml IV PUSH ONE (06:28)
[2024-04-12] MEDS: Magnesium Sulfate 2 gm BAG 2 GM/50 ML BAG IVPB ONE (08:01)
[2024-04-12] MEDS: Potassium Phosphate IV 30 MMOL in NS 0.9% 250 ml 250 ML IVPB ONE (10:25)
[2024-04-12] MEDS: Albumin Human 25% 25 GM/100 ML BTL IV SCH (10:44)
[2024-04-12 17:45] LABS: Calcium 7.9 mg/dL (8.6-10.3); Creatinine, Serum 0.54 mg/dL (0.67-1.17); Phosphorus 4.9 mg/dL (2.5-5.0); Potassium 3.9 mmol/L (3.5-5.0); eGFR CKD-EPI 125.2 (>60)
[2024-04-12] MEDS: Morphine 2 MG/ML SYRINGE IV PRN (21:34)
[2024-04-13 02:28] LABS: INR 2.06 (0.85-1.14)
[2024-04-13 03:20] LABS: Activated Partial Thrombo Time 71.7 seconds (26.0-38.0)
[2024-04-13 06:44] LABS: Hematocrit 18.5 % (38-53); Hemoglobin 6.3 g/dL (13.2-16.3); Mean Corpuscular Hemoglobin 32.7 pg (27-33); Mean Corpuscular Hgb Conc 34.4 g/dL (31-36); Mean Corpuscular Volume 95.2 fL (80-97); Mean Platelet Volume 8.9 fL (7.5-11.2); Platelet Count 99 10^3/uL (150-450); Red Blood Count 1.94 10^6/uL (4.06-5.63); Red Cell Distribution Width 17.8 % (12-17); White Blood Count 7.8 10^3/uL (3.6-10.2)
[2024-04-13 07:00] LABS: Albumin 3.4 g/dL (3.5-5.7); Albumin/Globulin Ratio 1.7 (1-3); Creatinine, Serum 0.52 mg/dL (0.67-1.17); Magnesium 2.1 mg/dL (1.9-2.7); Phosphorus 3.3 mg/dL (2.5-5.0); Potassium 3.9 mmol/L (3.5-5.0); Total Bilirubin 3.9 mg/dL (0.2-1.0); Total Protein 5.4 g/dL (6.4-8.9); eGFR CKD-EPI 126.7 (>60)
[2024-04-13] MEDS: Heparin DRIP 25,000 UNITS BAG 25,000 UNITS/250 ML BAG IV SCH (10:17)
[2024-04-13] MEDS: Pantoprazole VIAL 40 MG VIAL IV SCH (10:54)
[2024-04-13 13:23] LABS: % Iron Saturation 49 % (15-55); .Transferrin < 75 mg/dL (203-362); Iron 51 ug/dL (50-212); LDH 210 U/L (140-271); Total Iron Binding Capacity 105 mcg/dL (250-450); Unsaturated Iron Binding 54 ug/dL
[2024-04-13 13:38] LABS: TSH Ultra Thyroid Stim Horm 17.26 mcIU/mL (0.34-5.60)
[2024-04-13 13:46] LABS: Ferritin 912.1 ng/mL (24-336)
[2024-04-13 13:49] LABS: Folate 6.19 ng/mL (5.90-24.80)
[2024-04-13 13:50] LABS: Vitamin B12 500 pg/mL (180-914)
[2024-04-13 14:53] LABS: Immature Retic Fraction 0.19
[2024-04-13 14:58] LABS: Corrected Retic Count 1.9 % (0.5-2.2); RBC Retic Count 2.57 10^6/ul (4.06-5.63)
[2024-04-13 16:09] LABS: Hematocrit 23.8 % (38-53); Hemoglobin 8.1 g/dL (13.2-16.3)
[2024-04-14 05:48] LABS: Hematocrit 23.2 % (38-53); Mean Corpuscular Hemoglobin 32.2 pg (27-33); Mean Corpuscular Hgb Conc 34.5 g/dL (31-36); Mean Corpuscular Volume 93.4 fL (80-97); Platelet Count 101 10^3/uL (150-450); Red Blood Count 2.49 10^6/uL (4.06-5.63); Red Cell Distribution Width 17.7 % (12-17); White Blood Count 10.7 10^3/uL (3.6-10.2)
[2024-04-14 06:36] LABS: Albumin/Globulin Ratio 1.4 (1-3); Calcium 7.8 mg/dL (8.6-10.3); Creatinine, Serum 0.62 mg/dL (0.67-1.17); Globulin 2.1 g/dL (2-4); Phosphorus 2.7 mg/dL (2.5-5.0); Potassium 4.1 mmol/L (3.5-5.0); Total Protein 5.1 g/dL (6.4-8.9); eGFR CKD-EPI 120.1 (>60)
[2024-04-14] MEDS: Lactulose 30 ml UDC PO SCH (14:23)
[2024-04-14 14:46] LABS: Hematocrit 24.8 % (38-53); Hemoglobin 8.7 g/dL (13.2-16.3)
[2024-04-15 06:27] LABS: Hematocrit 22.6 % (38-53); Hemoglobin 7.9 g/dL (13.2-16.3); Mean Corpuscular Hemoglobin 32.7 pg (27-33); Mean Corpuscular Hgb Conc 34.9 g/dL (31-36); Mean Corpuscular Volume 93.7 fL (80-97); Mean Platelet Volume 9.3 fL (7.5-11.2); Platelet Count 114 10^3/uL (150-450); Red Blood Count 2.41 10^6/uL (4.06-5.63); Red Cell Distribution Width 17.1 % (12-17); White Blood Count 12.9 10^3/uL (3.6-10.2)
[2024-04-15 06:31] LABS: ABS Basophils 0.2 10^3/uL (0.0-0.1); ABS Eosinophils 0.6 10^3/uL (0.0-0.5); ABS Lymphocytes 1.5 10^3/uL (1.0-4.8); ABS Neutrophils 8.7 10^3/uL (1.5-7.6); ABS Nucleated RBC 0.02 10^3/ul; Lymphocyte % 11.3 %; Nucleated Red Blood Cells % 0.1 %/100WBC (0.0-0.8)
[2024-04-15 07:11] LABS: Albumin 2.9 g/dL (3.5-5.7); Albumin/Globulin Ratio 1.4 (1-3); Calcium 8.1 mg/dL (8.6-10.3); Creatinine, Serum 0.7 mg/dL (0.67-1.17); Globulin 2.1 g/dL (2-4); Magnesium 1.9 mg/dL (1.9-2.7); Potassium 4.3 mmol/L (3.5-5.0); Total Bilirubin 3.5 mg/dL (0.2-1.0); eGFR CKD-EPI 115.8 (>60)
[2024-04-15] MEDS: cefTRIAXone 2 gm/50 mL D5W 2 GM/50 ML BAG IV SCH (10:36)
[2024-04-16 06:48] LABS: Hematocrit 25.2 % (38-53); Mean Corpuscular Hemoglobin 33.1 pg (27-33); Mean Corpuscular Hgb Conc 35.6 g/dL (31-36); Mean Corpuscular Volume 92.9 fL (80-97); Platelet Count 125 10^3/uL (150-450); Red Blood Count 2.71 10^6/uL (4.06-5.63); Red Cell Distribution Width 17.8 % (12-17); White Blood Count 10.8 10^3/uL (3.6-10.2)
[2024-04-16 06:54] LABS: ABS Basophils 0.2 10^3/uL (0.0-0.1); ABS Eosinophils 0.7 10^3/uL (0.0-0.5); ABS Lymphocytes 1.3 10^3/uL (1.0-4.8); ABS Monocytes 1.7 10^3/uL (0.0-1.1); ABS Neutrophils 6.9 10^3/uL (1.5-7.6); ABS Nucleated RBC 0.01 10^3/ul; Eosinophil % 6.7 %; Lymphocyte % 11.7 %
[2024-04-16 07:21] LABS: Albumin 2.8 g/dL (3.5-5.7); Albumin/Globulin Ratio 1.2 (1-3); Calcium 8.3 mg/dL (8.6-10.3); Creatinine, Serum 0.67 mg/dL (0.67-1.17); Globulin 2.4 g/dL (2-4); Magnesium 1.8 mg/dL (1.9-2.7); Phosphorus 3.5 mg/dL (2.5-5.0); Potassium 4.2 mmol/L (3.5-5.0); Total Protein 5.2 g/dL (6.4-8.9); eGFR CKD-EPI 117.3 (>60)
[2024-04-16] MEDS: Magnesium Sulfate 2 gm BAG 2 GM/50 ML BAG IVPB ONE (09:16)
[2024-04-16] MEDS: Albumin Human 25% 25 GM/100 ML BTL IV ONE (13:43)
[2024-04-16 15:48] LABS: Body Fluid Appearance Clear; Body Fluid Color Yellow; Body Fluid Source Peritonial Fluid
[2024-04-16 16:04] LABS: Body Fluid Total Nucleated 301 /mcL
[2024-04-16 16:51] LABS: Body Fluid Mono 59 %; Body Fluid Other Cells 59; Body Fluid Total Cells Counted 200
[2024-04-17 04:43] LABS: Hematocrit 24.4 % (38-53); Hemoglobin 8.6 g/dL (13.2-16.3); Mean Corpuscular Hemoglobin 32.7 pg (27-33); Mean Corpuscular Hgb Conc 35.3 g/dL (31-36); Mean Corpuscular Volume 92.6 fL (80-97); Mean Platelet Volume 8.8 fL (7.5-11.2); Platelet Count 130 10^3/uL (150-450); Red Blood Count 2.64 10^6/uL (4.06-5.63); Red Cell Distribution Width 17.5 % (12-17); White Blood Count 10.6 10^3/uL (3.6-10.2)
[2024-04-17 04:47] LABS: ABS Basophils 0.2 10^3/uL (0.0-0.1); ABS Eosinophils 0.6 10^3/uL (0.0-0.5); ABS Lymphocytes 1.4 10^3/uL (1.0-4.8); ABS Monocytes 1.9 10^3/uL (0.0-1.1); ABS Neutrophils 6.5 10^3/uL (1.5-7.6); ABS Nucleated RBC 0.02 10^3/ul; Eosinophil % 5.6 %; Lymphocyte % 12.8 %; Nucleated Red Blood Cells % 0.2 %/100WBC (0.0-0.8)
[2024-04-17 04:52] LABS: Activated Partial Thrombo Time 54.8 seconds (26.0-38.0)
[2024-04-17 05:03] LABS: Calcium 8.2 mg/dL (8.6-10.3); Creatinine, Serum 0.58 mg/dL (0.67-1.17); Potassium 4.3 mmol/L (3.5-5.0); eGFR CKD-EPI 122.6 (>60)
[2024-04-17 08:18] LABS: INR 1.54 (0.85-1.14)
[2024-04-17] MEDS: Enoxaparin 100 MG/ML SYR SUBCUT SCH (20:58)
[2024-04-17] MEDS: Lactulose 30 ml UDC PO SCH (21:01)
[2024-04-18 05:12] LABS: Hematocrit 24.9 % (38-53); Hemoglobin 8.5 g/dL (13.2-16.3); Mean Corpuscular Hemoglobin 31.8 pg (27-33); Mean Corpuscular Hgb Conc 34.2 g/dL (31-36); Mean Corpuscular Volume 93.2 fL (80-97); Mean Platelet Volume 8.5 fL (7.5-11.2); Platelet Count 130 10^3/uL (150-450); Red Blood Count 2.67 10^6/uL (4.06-5.63); Red Cell Distribution Width 18.1 % (12-17); White Blood Count 9.4 10^3/uL (3.6-10.2)
[2024-04-18 05:52] LABS: Albumin 2.6 g/dL (3.5-5.7); Albumin/Globulin Ratio 1.1 (1-3); Calcium 8.3 mg/dL (8.6-10.3); Creatinine, Serum 0.53 mg/dL (0.67-1.17); Globulin 2.3 g/dL (2-4); Magnesium 1.8 mg/dL (1.9-2.7); Potassium 4.4 mmol/L (3.5-5.0); Total Bilirubin 3.6 mg/dL (0.2-1.0); Total Protein 4.9 g/dL (6.4-8.9); eGFR CKD-EPI 125.9 (>60)
[2024-04-18 07:36] LABS: ABS Basophils 0.1 10^3/uL (0.0-0.1); ABS Eosinophils 0.5 10^3/uL (0.0-0.5); ABS Lymphocytes 1.6 10^3/uL (1.0-4.8); ABS Monocytes 1.5 10^3/uL (0.0-1.1); ABS Neutrophils 5.7 10^3/uL (1.5-7.6); Anisocytosis 2+; Lymphocyte % 17.3 %
[2024-04-18 14:38] LABS: Lactate Dehydrogenase, BF 69 U/L
[2024-04-18 16:56] LABS: Albumin, BF 0.9 g/dL; Fluid Type, Albumin PERITONEAL FLUID; Glucose, BF 99 mg/dL
[2024-04-19 08:06] LABS: ABS Basophils 0.1 10^3/uL (0.0-0.1); ABS Eosinophils 0.4 10^3/uL (0.0-0.5); ABS Lymphocytes 1.6 10^3/uL (1.0-4.8); ABS Monocytes 1.5 10^3/uL (0.0-1.1); ABS Neutrophils 5.7 10^3/uL (1.5-7.6); Hematocrit 25.4 % (38-53); Hemoglobin 8.8 g/dL (13.2-16.3); Lymphocyte % 17.5 %; Mean Corpuscular Hgb Conc 34.7 g/dL (31-36); Mean Platelet Volume 8.1 fL (7.5-11.2); Platelet Count 132 10^3/uL (150-450); Red Blood Count 2.67 10^6/uL (4.06-5.63); Red Cell Distribution Width 18.6 % (12-17); White Blood Count 9.3 10^3/uL (3.6-10.2)
[2024-04-19 08:17] LABS: Fluid Type, Protein, Total PERITONEAL FLUID; Total Protein, BF 1.4 g/dL
[2024-04-19] MEDS: Magnesium Sulfate 2 gm BAG 2 GM/50 ML BAG IVPB ONE ×2 (08:36→10:02)
[2024-04-19 08:37] LABS: Albumin 2.6 g/dL (3.5-5.7); Calcium 8.3 mg/dL (8.6-10.3); Creatinine, Serum 0.57 mg/dL (0.67-1.17); Globulin 2.5 g/dL (2-4); Indirect Bilirubin 2.7 mg/dL (0.3-1.0); Magnesium 1.8 mg/dL (1.9-2.7); Potassium 4.5 mmol/L (3.5-5.0); Total Bilirubin 3.7 mg/dL (0.2-1.0); Total Protein 5.1 g/dL (6.4-8.9); eGFR CKD-EPI 123.2 (>60)
[2024-04-20 07:12] LABS: Anion Gap 4 mmol/L (2-16); Blood Urea Nitrogen 11 mg/dL (6-24); CO2 Carbon Dioxide 27 mmol/L (22-32); Calcium 8.3 mg/dL (8.6-10.3); Chloride 99 mmol/L (101-111); Creatinine, Serum 0.55 mg/dL (0.67-1.17); Glucose 79 mg/dL (70-100); Sodium 130 mmol/L (135-145); eGFR CKD-EPI 124.5 (>60)
[2024-04-20] MEDS: Lactulose 30 ml UDC PO SCH (12:44)
[2024-04-21] MEDS: Lactulose 30 ml UDC PO SCH (14:31)
[2024-04-22 06:54] LABS: ABS Basophils 0.1 10^3/uL (0.0-0.1); ABS Eosinophils 0.7 10^3/uL (0.0-0.5); ABS Lymphocytes 2.1 10^3/uL (1.0-4.8); ABS Monocytes 1.4 10^3/uL (0.0-1.1); ABS Neutrophils 5.1 10^3/uL (1.5-7.6); ABS Nucleated RBC 0.01 10^3/ul; Eosinophil % 7.5 %; Hemoglobin 9.4 g/dL (13.2-16.3); Lymphocyte % 22.2 %; Mean Corpuscular Hemoglobin 33.4 pg (27-33); Mean Corpuscular Hgb Conc 34.8 g/dL (31-36); Mean Corpuscular Volume 95.8 fL (80-97); Mean Platelet Volume 8.8 fL (7.5-11.2); Nucleated Red Blood Cells % 0.1 %/100WBC (0.0-0.8); Platelet Count 106 10^3/uL (150-450); Red Blood Count 2.82 10^6/uL (4.06-5.63); Red Cell Distribution Width 19.3 % (12-17); White Blood Count 9.4 10^3/uL (3.6-10.2)
[2024-04-22 07:15] LABS: Calcium 8.1 mg/dL (8.6-10.3); Creatinine, Serum 0.61 mg/dL (0.67-1.17); Potassium 4.5 mmol/L (3.5-5.0); eGFR CKD-EPI 120.7 (>60)
[2024-04-24 08:10] VITALS: BP 96/54
== END 2024-04-24 10:20 | DRG 351 ==
LOC: ED 01:43 → SUATTDRO 09:12 → EDHOLD 09:12 → AA 09:57 → EDHOLD 09:59 → ICU 10:12 → MED 04-12 15:17
PROVIDERS: ADMIT Internal Medicine Critical Care Medicine; ATTEND Hospitalist